=== PATIENT | male | born 1970 | race Caucasian/White ===

== ENCOUNTER 2016-12-27 18:55 | Emergency (ER) | payer MEDICAID, OTHER ==
[2016-12-27 20:06] LABS: BASO % 0.1 % (0.0-2.0); EOS # 0.2 K/uL (0.0-0.7); EOS % 3.2 % (0.0-4.0); LYMPH % 26.3 % (20.0-40.0); MEAN CORPUSCULAR HEMOGLOBIN 28.4 pg (27.0-31.0); MEAN CORPUSCULAR HGB CONC 33.5 g/dL (33.0-37.0); MEAN PLATELET VOLUME 7.2 fL (7.2-11.7); MONO # 0.9 K/uL (0.0-0.8); MONO % 11.9 % (0.0-10.0); RED CELL DISTRIBUTION WIDTH 13.7 % (11.5-14.5); WHITE BLOOD COUNT 7.7 K/uL (4.8-10.8)
--- NOTE | 2016-12-27 20:06 | C.PDOC ---
History Of Present Illness Patient is a 46 year old male who presents to the ER with a complaint of LUQ pain and bilateral flank pain for the past 3 days. Patient describes the pain as sharp and worsens with cough or movement. Patient notes he has been coughing for 7 months with clear/white sputum. He had an x-ray done 2 months ago that showed PNA, however, he was told it was just a cold. Patient states the cough still persists and states it feels different from his asthma. Patient has not tried using reflux medication and states it worsens when laying flat or with exertion. Denies vomiting, chest pain, leg swelling or urinary symptoms. Time Seen by Provider: 12/27/16 19:37 Chief Complaint (Nursing): Abdominal Pain History Per: Patient History/Exam Limitations: no limitations Onset/Duration Of Symptoms: Days (3) Current Symptoms Are (Timing): Still Present Context: Other (Coughing x7 months) Location Of Pain/Discomfort: LUQ, Other (Bilateral flank) Quality Of Discomfort: Sharp Associated Symptoms: denies: Vomiting, Chest Pain, Urinary Symptoms, Other (Leg swelling) Exacerbating Factors: Movement, Cough, Other (Laying down) Alleviating Factors: None Recent travel outside of the [place]: No Past Medical History Reviewed: Historical Data, Nursing Documentation, Vital Signs Vital Signs: Last Vital Signs Temp 99 F 12/27/16 19:02 Pulse 100 H 12/27/16 19:02 Resp 20 12/27/16 19:02 BP 145/94 H 12/27/16 19:02 Pulse Ox 95 12/27/16 20:18 - Medical History PMH: Asthma, Diabetes, HTN, Hypercholesterolemia Surgical History: Appendectomy - [facility] Procedures TETANUS TOXOID ADMINIST (01/21/14) Family History: States: Unknown Family Hx - Social History Hx Tobacco Use: No Hx Alcohol Use: No Hx Substance Use: No - Immunization History Hx Tetanus Toxoid Vaccination: Yes Hx Influenza Vaccination: Yes Hx Pneumococcal Vaccination: No Review Of Systems Cardiovascular: Negative for: Chest Pain Gastrointestinal: Positive for: Abdominal Pain (LUQ). Negative for: Vomiting Genitourinary: Negative for: Dysuria, Frequency, Incontinence, Hematuria Musculoskeletal: Positive for: Other (Bilateral flank pain. No leg swelling.) Physical Exam - Physical Exam Additional Physical Exam Comments: Constitutional: No acute distress. Head: Normocephalic. Atraumatic. Eyes: PERRL. ENT: Moist mucous membranes. Neck: No JVD. Cardiovascular: Regular rate. Radial pulse 2+ bilaterally. Chest: No tenderness. Respiratory: No crackles. GI: LUQ tenderness w/ guarding. Back: Bilateral lower back tenderness. Musculoskeletal: No tenderness or swelling of extremities. Skin: No rash. Neurologic: Alert, no focal deficit. ED Course And Treatment - Laboratory Results Result Diagrams: 12/27/16 20:02 12/27/16 20:02 O2 Sat by Pulse Oximetry: 95 Medical Decision Making Medical Decision Making: Impression: 46 year old male with LUQ pain and bilateral flank pain. Plan: * CT abd/pel w/ IV contrast * Blood work * CXR ABDOMEN: Liver: Fatty infiltration. Gallbladder and bile ducts: No calcified stones. No ductal dilation. Pancreas: No ductal dilation. No mass. Spleen: No splenomegaly. Adrenals: No mass. Kidneys and ureters: Too small to characterize lesion within RIGHT kidney. No hydronephrosis. Stomach and bowel: Apparent mild mural thickening of few jejunal loops. No associated inflammatory stranding. No obstruction. Appendix: No findings to suggest acute appendicitis. PELVIS: Bladder: Unremarkable. Reproductive: Unremarkable as visualized. ABDOMEN and PELVIS: Intraperitoneal space: No significant fluid collection. No free air. Bones/joints: Mild degenerative changes of spine. No acute fracture. Soft tissues: Tiny inguinal hernias containing fat. Vasculature: Unremarkable. No aneurysm. Lymph nodes: Few subcentimeter short axis mesenteric lymph nodes, nonspecific. IMPRESSION: 1. Possible mild enteritis. Clinical correlation is needed. 2. Incidental/non-acute findings are described above. Labs unremarkable. Will discharge home, f/u PMD, return to ER for worsening dyspnea, fever, vomiting, or any other problem. Disposition - Disposition Disposition: HOME/ ROUTINE Disposition Time: 21:55 Condition: STABLE Prescriptions: levoFLOXacin [Levaquin] 1 tab PO DAILY #10 tab Metronidazole [Flagyl] 500 mg PO Q8 #30 tab Instructions: Enteritis (ED) - Clinical Impression Clinical Impression: Enteritis - Scribe Statement The provider has reviewed the documentation as recorded by the Jorgeibnatalie Kelley All medical record entries made by the Jorgeibnatalie were at my direction and personally dictated by me. I have reviewed the chart and agree that the record accurately reflects my personal performance of the history, physical exam, medical decision making, and the department course for this patient. I have also personally directed, reviewed, and agree with the discharge instructions and disposition.
[2016-12-27 20:07] LABS: MEAN CELL VOLUME 84.6 fL (80.0-94.0)
[2016-12-27 20:16] LABS: CHLORIDE 100 mmol/L (98-107); SODIUM 134 mmol/L (132-148)
[2016-12-27 20:17] LABS: POTASSIUM 4.3 mmol/L (3.6-5.2)
[2016-12-27 20:19] LABS: ALB/GLOB RATIO 1.3 (1.0-2.1); ALKALINE PHOSPHATASE 65 U/L (38-126); ALT/SGPT 79 U/L (21-72); AST/SGOT 44 U/L (17-59); BILIRUBIN,TOTAL 0.6 mg/dL (0.2-1.3); BLOOD UREA NITROGEN 17 mg/dL (9-20); CALCIUM 8.5 mg/dl (8.6-10.4); CARBON DIOXIDE 22 mmol/L (22-30); GFR AFRICAN-AMERICAN > 60; GLUCOSE,RANDOM 258 mg/dL (75-110); TOTAL PROTEIN 6.9 g/dL (6.3-8.3)
[2016-12-27] MEDS ORDERED: Iodixanol 320 MG/ML 100 ML BOTTLE IV ONE (20:38)
--- NOTE | 2016-12-27 21:53 | CT ---
EXAM: CT Abdomen and Pelvis With Intravenous Contrast CLINICAL HISTORY: 46 years old, male; Pain; Abdominal pain; Generalized; Additional info: Abdominal pain, flank tenderness TECHNIQUE: Axial computed tomography images of the abdomen and pelvis with intravenous contrast. This CT exam was performed using one or more of the following dose reduction techniques: automated exposure control, adjustment of the mA and/or kV according to patient size, and/or use of iterative reconstruction technique. Coronal and sagittal reformatted images were created and reviewed. CONTRAST: 100 mL of visipaque administered intravenously. COMPARISON: No relevant prior studies available. FINDINGS: Lower thorax: No acute findings. ABDOMEN: Liver: Fatty infiltration. Gallbladder and bile ducts: No calcified stones. No ductal dilation. Pancreas: No ductal dilation. No mass. Spleen: No splenomegaly. Adrenals: No mass. Kidneys and ureters: Too small to characterize lesion within RIGHT kidney. No hydronephrosis. Stomach and bowel: Apparent mild mural thickening of few jejunal loops. No associated inflammatory stranding. No obstruction. Appendix: No findings to suggest acute appendicitis. PELVIS: Bladder: Unremarkable. Reproductive: Unremarkable as visualized. ABDOMEN and PELVIS: Intraperitoneal space: No significant fluid collection. No free air. Bones/joints: Mild degenerative changes of spine. No acute fracture. Soft tissues: Tiny inguinal hernias containing fat. Vasculature: Unremarkable. No aneurysm. Lymph nodes: Few subcentimeter short axis mesenteric lymph nodes, nonspecific. IMPRESSION: 1. Possible mild enteritis. Clinical correlation is needed. 2. Incidental/non-acute findings are described above.
[2016-12-27 22:44] VITALS: BP 124/74; PULSE 74; RESP 18; TEMP 98.2; O2SAT 98
--- NOTE | 2016-12-28 08:21 | RAD ---
HISTORY: cough COMPARISON: 07/11/2014 TECHNIQUE: Chest PA and lateral FINDINGS: LUNGS: No active pulmonary disease. PLEURA: No significant pleural effusion identified. No pneumothorax apparent. CARDIOVASCULAR: Normal. OSSEOUS STRUCTURES: No significant abnormalities. VISUALIZED UPPER ABDOMEN: Normal. OTHER FINDINGS: None. IMPRESSION: No active disease.
== END 2016-12-27 22:44 | disposition home or self-care (01) ==
LOC: C.ER 18:55
DX: K52.9 Noninfective gastroenteritis and colitis, unspecified (principal); I10 Essential (primary) hypertension
CPT/HCPCS: 71020; 74177; 80053; 82550; 82553; 83690; 83880; 84484; 85025; 99285; Q9967

== ENCOUNTER 2017-06-29 10:27 | Observation (INO) | payer SELFPAY ==
[2017-06-29 10:44] VITALS: BMI 36.3
[2017-06-29] MEDS ORDERED: Nitroglycerin 2% Ointment Foilpak UD TOP STA (11:24)
[2017-06-29] MEDS ORDERED: Aspirin 325 mg EC Tablets PO STA (11:24)
--- NOTE | 2017-06-29 11:24 | C.PDOC ---
History Of Present Illness 46 year old male with a PMHx of HTN and Diabetes presents to the ED with complaints of chest pain. Patient reports left sided chest pain and left arm pain that radiates down to the fingers beginning earlier today while driving. Patient has had 3 episodes of chest pain that last a few seconds since the onset with pain to left side of neck. Patient states he has had a sore throat, cough, and abdominal pain for one week. Patient notes similar symptoms 5 years ago and had a negative Stress Test performed. Patient denies fever, chills, weakness, numbness, shortness of breath, or other complaints at this time. Time Seen by Provider: 06/29/17 10:53 Chief Complaint (Nursing): Chest Pain History Per: Patient History/Exam Limitations: no limitations Onset/Duration Of Symptoms: Hrs, Intermittent Episodes Current Symptoms Are (Timing): Still Present Quality: "Pain" Associated Symptoms: denies: Nausea, Dyspnea, Diaphoresis, Syncope Exacerbating Factors: None Alleviating Factors: None Recent travel outside of the [place]: No Additional History Per: Family () Past Medical History Reviewed: Historical Data, Nursing Documentation, Vital Signs Vital Signs: Last Vital Signs Temp 98.4 F 06/29/17 10:38 Pulse 90 06/29/17 10:38 Resp 20 06/29/17 10:38 BP 150/88 06/29/17 10:38 Pulse Ox 96 06/29/17 13:06 - Medical History PMH: Asthma, Diabetes, HTN, Hypercholesterolemia Surgical History: Appendectomy - [facility] Procedures TETANUS TOXOID ADMINIST (01/21/14) Family History: States: Unknown Family Hx - Social History Hx Tobacco Use: No Hx Alcohol Use: No Hx Substance Use: No - Immunization History Hx Tetanus Toxoid Vaccination: Yes Hx Influenza Vaccination: Yes Hx Pneumococcal Vaccination: No Review Of Systems Constitutional: Negative for: Fever, Chills, Sweats Cardiovascular: Positive for: Chest Pain. Negative for: Palpitations Respiratory: Negative for: Cough, Shortness of Breath Gastrointestinal: Positive for: Abdominal Pain (lower abdominal pain). Negative for: Nausea, Vomiting Musculoskeletal: Positive for: Neck Pain (left sided ), Arm Pain (left arm pain ) Neurological: Negative for: Numbness Physical Exam - Physical Exam Appears: Non-toxic, No Acute Distress Skin: Warm, Dry, No Rash Head: Atraumatic, Normacephalic, No Tenderness Eye(s): bilateral: Normal Inspection Oral Mucosa: Moist Chest: Symmetrical, No Deformity, No Tenderness (non-reproducible, with palpation, chest pain left anterior chest wall ) Cardiovascular: Rhythm Regular, No Murmur Respiratory: No Rales, No Rhonchi, No Wheezing, Other (clear to auscultation bilaterally) Extremity: Normal ROM, No Pedal Edema, Capillary Refill (< 2 seconds), No Swelling, Other (left shoulder reproducible pain with internal rotation and adduction) Neurological/Psych: Oriented x3 ED Course And Treatment - Laboratory Results Result Diagrams: 06/29/17 12:11 06/29/17 12:11 ECG: Interpreted By Me ECG Rhythm: Sinus Rhythm ECG Interpretation: Normal Rate From EC O2 Sat by Pulse Oximetry: 96 (RA) Pulse Ox Interpretation: Normal - Radiology CXR: Interpreted by Me, Viewed By Me CXR Interpretation: Yes: No Acute Disease Progress Note: EKG, CXR, labd, and blood work were ordered. Patient was given Aspirin, Nitroglycerin 2%, and Toradol. Reevaluation Time: 13:06 Reassessment Condition: Improved - Physician Consult Information Time Consulting Physician Contacted: 13:06 Physician Contacted: Guillermina Silva Disposition Counseled Patient/Family Regarding: Studies Performed, Diagnosis - Disposition Disposition: HOSPITALIZED Disposition Time: 13:06 Condition: STABLE - POA Present On Arrival: Poor Glycemic Control - Clinical Impression Clinical Impression: Chest pain - Scribe Statement The provider has reviewed the documentation as recorded by the Scribe Liliana Dimas All medical record entries made by the Scribe were at my direction and personally dictated by me. I have reviewed the chart and agree that the record accurately reflects my personal performance of the history, physical exam, medical decision making, and the department course for this patient. I have also personally directed, reviewed, and agree with the discharge instructions and disposition. Decision To Admit - Pt Status Changed To: Hospital Disposition Of: Observation - . Bed Request Type: Telemetry Admitting Physician: Guillermina Silva Patient Diagnosis: Chest pain
--- NOTE | 2017-06-29 11:47 | RAD ---
HISTORY: chest pain COMPARISON: Chest x-ray performed 12/27/16 TECHNIQUE: Chest PA and lateral FINDINGS: Examination limited by habitus. LUNGS: No focal consolidation. Please note that chest x-ray has limited sensitivity for the detection of pulmonary masses. PLEURA: No significant pleural effusion identified. No definite pneumothorax . CARDIOVASCULAR: Heart size appears top normal. OSSEOUS STRUCTURES: Degenerative changes of the spine. VISUALIZED UPPER ABDOMEN: Unremarkable. OTHER FINDINGS: None. IMPRESSION: No focal consolidation, significant pleural effusion, or definite pneumothorax identified.
[2017-06-29] MEDS ORDERED: Nitroglycerin 2% Ointment Foilpak UD TOP ONE (11:48)
[2017-06-29 12:14] LABS: BASO # 0.1 K/uL (0.0-0.2); BASO % 0.6 % (0.0-2.0); EOS # 0.3 K/uL (0.0-0.7); EOS % 2.8 % (0.0-4.0); HEMATOCRIT 42.6 % (35.0-51.0); MEAN CELL VOLUME 85.3 fL (80.0-94.0); MEAN CORPUSCULAR HEMOGLOBIN 28.3 pg (27.0-31.0); MEAN CORPUSCULAR HGB CONC 33.2 g/dL (33.0-37.0); MEAN PLATELET VOLUME 7.5 fL (7.2-11.7); MONO # 0.7 K/uL (0.0-0.8); MONO % 7.3 % (0.0-10.0); RED CELL DISTRIBUTION WIDTH 13.3 % (11.5-14.5); WHITE BLOOD COUNT 9.2 K/uL (4.8-10.8)
[2017-06-29 12:27] LABS: ALB/GLOB RATIO 1.5 (1.0-2.1); ALKALINE PHOSPHATASE 50 U/L (38-126); ALT/SGPT 62 U/L (21-72); AST/SGOT 28 U/L (17-59); BILIRUBIN,TOTAL 0.5 mg/dL (0.2-1.3); BLOOD UREA NITROGEN 11 mg/dL (9-20); CALCIUM 8.5 mg/dl (8.6-10.4); CARBON DIOXIDE 27 mmol/L (22-30); CHLORIDE 102 mmol/L (98-107); GFR AFRICAN-AMERICAN > 60; GLUCOSE,RANDOM 265 mg/dL (75-110); POTASSIUM 4.3 mmol/L (3.6-5.2); SODIUM 136 mmol/L (132-148); TOTAL PROTEIN 6.4 g/dL (6.3-8.3)
--- NOTE | 2017-06-29 15:33 | CP.PCM.HP ---
History of Present Illness - History of Present Illness History of Present Illness: Pt came to ER co chest pain. Pt states he was doing well, went to the bank and while there felt some chest discomfort. PT states it felt as somebody " punching him on the chest". Pt states the discomfort occurred two more times while in the ER but always lasting seconds. PT is comfortable now. had a stress test a couple of years ago and was told it was ok PMh Uncontrolled diabetes Elevated LFT's HTN Asthma Radiculopathy cervical, lumbosacral Hyperlipidemia Family Hx: Mother: Dm, HTN Surgical Hx: none Social Hx: Neg. smoke Allergies: NKDA Current meds: Metformin 1,000ml 1 tab BID Toujeo Solostar 40 units QHS, 35 units every morning Aspirin 81mg 1 tab QD Carvedilol 3.125mg 1 tab po BID Glimepiride 4mg 1 tab po BID Flovent HFA 1 puff BID Present on Admission - Present on Admission Any Indicators Present on Admission: No Review of Systems - Constitutional Constitutional: absent: Chills, Fatigue, Malaise - Cardiovascular Cardiovascular: Chest Pain. absent: Edema, Irregular Heart Rhythm Past Patient History - Infectious Disease Hx of Infectious Diseases: None - Tetanus Immunizations Tetanus Immunization: Unknown - Past Medical History & Family History Past Medical History?: Yes - Past Social History Smoking Status: Never Smoked - CARDIAC Hx Hypercholesterolemia: Yes Hx Hypertension: Yes - PULMONARY Hx Asthma: Yes - ENDOCRINE/METABOLIC Hx Diabetes Mellitus Type 2: Yes - MUSCULOSKELETAL/RHEUMATOLOGICAL Hx Falls: No - PSYCHIATRIC Hx Substance Use: No - SURGICAL HISTORY Hx Appendectomy: Yes - ANESTHESIA Hx Anesthesia: Yes Hx Anesthesia Reactions: No Meds Allergies/Adverse Reactions: Allergies Allergy/AdvReac Type Severity Reaction Status Date / Time No Known Allergies Allergy Verified 06/29/17 10:37 Physical Exam - Constitutional Appears: Non-toxic - Eye Exam Eye Exam: EOMI, Normal appearance - ENT Exam ENT Exam: Mucous Membranes Moist - Neck Exam Neck exam: Positive for: Normal Inspection - Respiratory Exam Respiratory Exam: NORMAL BREATHING PATTERN - Cardiovascular Exam Cardiovascular Exam: REGULAR RHYTHM, RRR, +S1, +S2. absent: JVD - GI/Abdominal Exam GI & Abdominal Exam: Normal Bowel Sounds, Soft - Neurological Exam Neurological exam: Alert (no pedal edeam), Oriented x3 Results - Vital Signs Recent Vital Signs: Last Vital Signs Temp 98.4 F 06/29/17 10:38 Pulse 90 06/29/17 10:38 Resp 20 06/29/17 10:38 BP 150/88 06/29/17 10:38 Pulse Ox 96 06/29/17 13:47 - Labs Result Diagrams: 06/29/17 12:11 06/29/17 12:11 Labs: Laboratory Results - last 24 hr 06/29/17 06/29/17 12:11 12:11 WBC 9.2 RBC 4.99 Hgb 14.1 Hct 42.6 MCV 85.3 MCH 28.3 MCHC 33.2 RDW 13.3 Plt Count 360 MPV 7.5 Neut % (Auto) 67.3 Lymph % (Auto) 22.0 [place] % (Auto) 7.3 Eos % (Auto) 2.8 Baso % (Auto) 0.6 Neut # 6.2 Lymph # 2.0 [place] # 0.7 Eos # 0.3 Baso # 0.1 Sodium 136 Potassium 4.3 Chloride 102 Carbon Dioxide 27 Anion Gap 12 BUN 11 Creatinine 0.6 L Est GFR ( Amer) > 60 Est GFR (Non-Af Amer) > 60 Random Glucose 265 H Calcium 8.5 L Total Bilirubin 0.5 AST 28 ALT 62 Alkaline Phosphatase 50 Troponin I < 0.0120 Total Protein 6.4 Albumin 3.8 Globulin 2.5 Albumin/Globulin Ratio 1.5 Assessment & Plan - Assessment and Plan (Free Text) Assessment: 46 year old with atypical chest discomfort pt is diabetic in poor controll will admit under observation given his riks factors asa bblocker joe ekg cardio eval cont diabetic mes
[2017-06-29 21:56] LABS: CHOLESTEROL 180 mg/dL (0-199)
[2017-06-29 22:04] VITALS: RESP 20
[2017-06-30] MEDS ORDERED: (Lantus) Insulin Glargine, Recombinant SC SCH (10:00)
[2017-06-30] MEDS ORDERED: Enoxaparin 40 mg Syringe SC SCH (10:00)
[2017-06-30 10:11] VITALS: BP 127/74; TEMP 97.9; O2SAT 95
--- NOTE | 2017-06-30 13:31 | CP.PCM.CON ---
History of Present Illness - History of Present Illness History of Present Illness: 46 year old man with diabetes and recent URI. Pt left the bank, and in the car had two separate episodes of brief sharp chest pain, left sided, lasting seconds. Symptoms recurred in the ER. He also had separate left arm pain, lasting a few minutes, down to his fingers. later she developed a separate pain from the shoulder to the neck. TNI and ecg are normal. A nuclear stress test performed two years ago was normal at 7.0 METS. Review of Systems - Review of Systems All systems: reviewed and no additional remarkable complaints except (as abov.e) Past Patient History - Infectious Disease Hx of Infectious Diseases: None - Tetanus Immunizations Tetanus Immunization: Unknown - Past Medical History & Family History Past Medical History?: Yes - Past Social History Smoking Status: Never Smoked - CARDIAC Hx Cardiac Disorders: Yes Hx Hypercholesterolemia: Yes Hx Hypertension: Yes - PULMONARY Hx Respiratory Disorders: Yes Hx Asthma: Yes - ENDOCRINE/METABOLIC Hx Endocrine Disorders: Yes Hx Diabetes Mellitus Type 2: Yes - MUSCULOSKELETAL/RHEUMATOLOGICAL Hx Musculoskeletal Disorders: No Hx Falls: No - PSYCHIATRIC Hx Substance Use: No - SURGICAL HISTORY Hx Surgeries: Yes Hx Appendectomy: Yes - ANESTHESIA Hx Anesthesia: Yes Hx Anesthesia Reactions: No Meds Allergies/Adverse Reactions: Allergies Allergy/AdvReac Type Severity Reaction Status Date / Time No Known Allergies Allergy Verified 06/29/17 10:37 - Medications Medications: Current Medications Aspirin (Aspirin Chewable) 81 mg PO DAILY [facility] Last Admin: 06/30/17 10:12 Dose: 81 mg Carvedilol (Coreg) 6.25 mg PO BID [facility] Last Admin: 06/30/17 10:12 Dose: 6.25 mg Enoxaparin Sodium (Lovenox) 40 mg SC DAILY [facility] Last Admin: 06/30/17 10:12 Dose: 40 mg Insulin Glargine (Lantus) 40 unit SC DAILY [facility] Last Admin: 06/30/17 10:36 Dose: 40 units Metformin HCl (Glucophage) 1,000 mg PO BID [facility] Last Admin: 06/30/17 10:12 Dose: 1,000 mg Rosuvastatin Calcium (Crestor) 20 mg PO HS [facility] Last Admin: 06/29/17 22:37 Dose: 20 mg Physical Exam - Constitutional Appears: Well - Head Exam Head Exam: ATRAUMATIC - Eye Exam Eye Exam: EOMI - ENT Exam ENT Exam: Mucous Membranes Moist - Respiratory Exam Respiratory Exam: Clear to Auscultation Bilateral - Cardiovascular Exam Cardiovascular Exam: REGULAR RHYTHM - GI/Abdominal Exam GI & Abdominal Exam: Normal Bowel Sounds - Rectal Exam Rectal Exam: NORMAL INSPECTION - Exam External exam: NORMAL EXTERNAL EXAM - Extremities Exam Extremities exam: Positive for: normal inspection - Back Exam Back exam: NORMAL INSPECTION - Neurological Exam Neurological exam: Alert, CN II-XII Intact, Oriented x3 - Psychiatric Exam Psychiatric exam: Normal Affect, Normal Mood - Skin Skin Exam: Dry Results - Vital Signs Recent Vital Signs: Last Vital Signs Temp 97.9 F 06/30/17 10:10 Pulse 89 06/30/17 10:10 Resp 20 06/30/17 10:10 BP 127/74 06/30/17 10:10 Pulse Ox 95 06/30/17 10:10 - Labs Result Diagrams: 06/29/17 12:11 06/29/17 12:11 Labs: Laboratory Results - last 24 hr 06/29/17 06/29/17 06/29/17 21:34 21:40 21:46 POC Glucose (mg/dL) 234 H Total Creatine Kinase 113 CK-MB (Mass) 1.14 Troponin I < 0.0120 Triglycerides 229 H Cholesterol 180 LDL Cholesterol Direct 115 HDL Cholesterol 33 06/30/17 06/30/17 06:21 11:15 POC Glucose (mg/dL) 197 H 239 H Total Creatine Kinase CK-MB (Mass) Troponin I Triglycerides Cholesterol LDL Cholesterol Direct HDL Cholesterol - EKG Data EKG Interpreted by: Myself EKG shows normal: Sinus rhythm Rate: Normal (normal ecg) Assessment & Plan - Assessment and Plan (Free Text) Assessment: 1. Pt has atypical components of his story: pt had been coughing and chest pain very brief. However, he does report left arm pain that lasted for a while. TNI and ecg are normal. Will perform stress test in the morning to assess the patient and risk stratification. 2. Add velvet inhibitor for HTN and dm. Continue beta amanda, asa statin.
--- NOTE | 2017-06-30 14:48 | CP.PCM.PN ---
Subjective - Date & Time of Evaluation Date of Evaluation: 06/30/17 Time of Evaluation: 14:48 - Subjective Subjective: PATIENT WAS ADMITTED FOR CHEST PAIN; AAOX3 DENIES ANY CHEST PAIN SOB NAUSEA OR VOMITING NO SIGN OF DISTRESS NOTED Objective - Vital Signs/Intake and Output Vital Signs (last 24 hours): Temp Pulse Resp BP Pulse Ox 97.9 F 89 20 127/74 95 06/30/17 10:10 06/30/17 10:10 06/30/17 10:10 06/30/17 10:10 06/30/17 10:10 Intake and Output: 06/30/17 06/30/17 06:59 18:59 Intake Total 480 Balance 480 - Medications Medications: Current Medications Aspirin (Aspirin Chewable) 81 mg PO DAILY [facility] Last Admin: 06/30/17 10:12 Dose: 81 mg Carvedilol (Coreg) 6.25 mg PO BID [facility] Last Admin: 06/30/17 10:12 Dose: 6.25 mg Enoxaparin Sodium (Lovenox) 40 mg SC DAILY [facility] Last Admin: 06/30/17 10:12 Dose: 40 mg Insulin Glargine (Lantus) 40 unit SC DAILY [facility] Last Admin: 06/30/17 10:36 Dose: 40 units Metformin HCl (Glucophage) 1,000 mg PO BID [facility] Last Admin: 06/30/17 10:12 Dose: 1,000 mg Rosuvastatin Calcium (Crestor) 20 mg PO HS [facility] Last Admin: 06/29/17 22:37 Dose: 20 mg - Labs Labs: 06/29/17 12:11 06/29/17 12:11 - Head Exam Head Exam: NORMOCEPHALIC - Eye Exam Pupil Exam: NORMAL ACCOMODATION - Respiratory Exam Respiratory Exam: Clear to Ausculation Bilateral, NORMAL BREATHING PATTERN - Cardiovascular Exam Cardiovascular Exam: +S1, +S2 Assessment and Plan - Assessment and Plan (Free Text) Assessment: A/P PATIENT IS SEEN AND EXAMINED AT THE BEDSIDE; JUST CAME FROM STRESS TEST WHICH IS NEG BY DR ROUSSEAU WHO CLEAR THE PATIENT FOR DC LUNG SOUND CLEAR; DISCUSS WITH DR LOPEZ WHO AGREE AND CLEAR PATIENT TO DC FOLLOW UP WITH DR LOPEZ IN A WEEK AT HER OFFICE ---CALL HER OFFICE FOR APPOINTMENT CONTINUE ALL YOUR HOME MEDICATION PER MED RECS NEW RX GIVEN: CRESTOR 20 MG PO AT HS AMOXICILLIN 500 MG PO THREE TIMES A DAY FOR [address] LOPEZ OR GO TO THE EMERGENCY ROOM IF SYMPTOMS RETURN OR WORSENING DISCUSS WITH PATIENT WHO AGREE AND VERBALIZED UNDERSTANDING
--- NOTE | 2017-06-30 15:20 | CP.PCM.DIS ---
Provider - Provider Date of Admission: 06/29/17 13:06 Pt was admitted for atypical chest pain place in telemetry ruled out ekg normal was evalutated by cardio stress test was ck Attending physician: Guillermina Silva MD Time Spent in preparation of Discharge (in minutes): 30 Hospital Course - Lab Results Lab Results: Most Recent Lab Values WBC 9.2 K/uL (4.8-10.8) 06/29/17 12:11 RBC 4.99 Mil/uL (4.40-5.90) 06/29/17 12:11 Hgb 14.1 g/dL (12.0-18.0) 06/29/17 12:11 Hct 42.6 % (35.0-51.0) 06/29/17 12:11 MCV 85.3 fL (80.0-94.0) 06/29/17 12:11 MCH 28.3 pg (27.0-31.0) 06/29/17 12:11 MCHC 33.2 g/dL (33.0-37.0) 06/29/17 12:11 RDW 13.3 % (11.5-14.5) 06/29/17 12:11 Plt Count 360 K/uL (130-400) 06/29/17 12:11 MPV 7.5 fL (7.2-11.7) 06/29/17 12:11 Neut % (Auto) 67.3 % (50.0-75.0) 06/29/17 12:11 Lymph % (Auto) 22.0 % (20.0-40.0) 06/29/17 12:11 Montgomery % (Auto) 7.3 % (0.0-10.0) 06/29/17 12:11 Eos % (Auto) 2.8 % (0.0-4.0) 06/29/17 12:11 Baso % (Auto) 0.6 % (0.0-2.0) 06/29/17 12:11 Neut # 6.2 K/uL (1.8-7.0) 06/29/17 12:11 Lymph # 2.0 K/uL (1.0-4.3) 06/29/17 12:11 Montgomery # 0.7 K/uL (0.0-0.8) 06/29/17 12:11 Eos # 0.3 K/uL (0.0-0.7) 06/29/17 12:11 Baso # 0.1 K/uL (0.0-0.2) 06/29/17 12:11 Sodium 136 mmol/L (132-148) 06/29/17 12:11 Potassium 4.3 mmol/L (3.6-5.2) 06/29/17 12:11 Chloride 102 mmol/L (98-107) 06/29/17 12:11 Carbon Dioxide 27 mmol/L (22-30) 06/29/17 12:11 Anion Gap 12 (10-20) 06/29/17 12:11 BUN 11 mg/dL (9-20) 06/29/17 12:11 Creatinine 0.6 mg/dL (0.8-1.5) L 06/29/17 12:11 Est GFR ( Amer) > 60 06/29/17 12:11 Est GFR (Non-Af Amer) > 60 06/29/17 12:11 POC Glucose (mg/dL) 239 mg/dL (65-110) H 06/30/17 11:15 Random Glucose 265 mg/dL (75-110) H 06/29/17 12:11 Calcium 8.5 mg/dl (8.6-10.4) L 06/29/17 12:11 Total Bilirubin 0.5 mg/dL (0.2-1.3) 06/29/17 12:11 AST 28 U/L (17-59) 06/29/17 12:11 ALT 62 U/L (21-72) 06/29/17 12:11 Alkaline Phosphatase 50 U/L (38-126) 06/29/17 12:11 Total Creatine Kinase 113 U/L (55-170) 06/29/17 21:34 CK-MB (Mass) 1.14 ng/mL (0.0-3.38) 06/29/17 21:34 Troponin I < 0.0120 ng/mL (0.00-0.120) 06/29/17 21:34 Total Protein 6.4 g/dL (6.3-8.3) 06/29/17 12:11 Albumin 3.8 g/dL (3.5-5.0) 06/29/17 12:11 Globulin 2.5 gm/dL (2.2-3.9) 06/29/17 12:11 Albumin/Globulin Ratio 1.5 (1.0-2.1) 06/29/17 12:11 Triglycerides 229 mg/dL (0-149) H 06/29/17 21:46 Cholesterol 180 mg/dL (0-199) 06/29/17 21:46 LDL Cholesterol Direct 115 mg/dL (0-129) 06/29/17 21:46 HDL Cholesterol 33 mg/dL (30-70) 06/29/17 21:46 - Hospital Course Hospital Course: Pt was admitted , ruled out stress test was negativ seen by Dr. Ramirez Discharge Exam - Head Exam Head Exam: ATRAUMATIC - Eye Exam Eye Exam: EOMI, Normal appearance - Respiratory Exam Respiratory Exam: Clear to PA & Lateral, NORMAL BREATHING PATTERN - Cardiovascular Exam Cardiovascular Exam: REGULAR RHYTHM, RRR, +S1, +S2 - GI/Abdominal Exam GI & Abdominal Exam: Normal Bowel Sounds Discharge Plan - Discharge Medications Prescriptions: Amoxicillin 500 mg PO TID #15 tablet Rosuvastatin Calcium [Crestor] 20 mg PO HS #30 tab - Follow Up Plan Instructions: Amoxicillin (By mouth), Rosuvastatin (By mouth), Chest Pain (DC) , Heart Healthy Diet (DC) Additional Instructions: FOLLOW UP WITH DR SILVA IN A WEEK AT HER OFFICE ---CALL HER OFFICE FOR APPOINTMENT CONTINUE ALL YOUR HOME MEDICATION PER MED RECS NEW RX GIVEN: CRESTOR 20 MG PO AT HS AMOXICILLIN 500 MG PO THREE TIMES A DAY FOR [address] SILVA OR GO TO THE EMERGENCY ROOM IF SYMPTOMS RETURN OR WORSENING Referrals: Guillermina Silva MD [Staff Provider] -
[2017-06-30 16:01] VITALS: PULSE 87
--- NOTE | 2017-06-30 22:22 | CARD ---
APPROVED REPORT EKG Measurement Heart [id number] <Conclusion> Normal sinus rhythm Normal ECG
[2017-07-01] MEDS ORDERED: Influenza Vaccine 60 mcg/0.5 mL SYR (4YR UP) IM ONE (10:00)
== END 2017-06-30 15:39 | disposition home or self-care (01) ==
LOC: C.ER 10:27 → C.9E 13:06 → C.6T 20:53
PROVIDERS: ADMIT Internal Medicine; ATTEND Internal Medicine
DX: R07.89 Other chest pain (principal); E78.5 Hyperlipidemia, unspecified; E11.9 Type 2 diabetes mellitus without complications; I10 Essential (primary) hypertension; J45.909 Unspecified asthma, uncomplicated; Z68.36 Body mass index [BMI] 36.0-36.9, adult
CPT/HCPCS: 71020; 80053; 80061; 82948; 84484; 85025; 93005; 96374; 99285; G0378; J1650; J1885

== ENCOUNTER 2018-03-23 21:52 | Emergency (ER) | payer BC ==
[2018-03-23 21:52] VITALS: BMI 36.3
[2018-03-23 22:33] VITALS: BP 138/85; PULSE 85; RESP 18; TEMP 99.3; O2SAT 96
--- NOTE | 2018-03-24 00:10 | C.PDOC ---
History Of Present Illness 47 y/o male presents to the ED complaining of right-sided neck pain and stiffness since waking up today. Patient states pain is radiating to his head and right ear. Denies any trauma. Otherwise no dizziness, weakness, numbness, fever, vomiting, or URI symptoms. States he took Motrin this morning with minimal relief. He now feels that pain has worsened. Time Seen by Provider: 03/23/18 22:38 Chief Complaint (Nursing): Medical Clearance History Per: Patient History/Exam Limitations: no limitations Onset/Duration Of Symptoms: Hrs Current Symptoms Are (Timing): Still Present Past Medical History Reviewed: Historical Data, Nursing Documentation, Vital Signs Vital Signs: Last Vital Signs Temp 99.3 F 03/23/18 22:27 Pulse 85 03/23/18 22:27 Resp 18 03/23/18 22:27 BP 138/85 03/23/18 22:27 Pulse Ox 96 03/24/18 01:38 - Medical History PMH: Asthma, Diabetes, HTN, Hypercholesterolemia Surgical History: Appendectomy - [facility] Procedures TETANUS TOXOID ADMINIST (01/21/14) Family History: States: Unknown Family Hx - Social History Hx Tobacco Use: No Hx Alcohol Use: No (social drinker only) Hx Substance Use: No - Immunization History Hx Tetanus Toxoid Vaccination: Yes Hx Influenza Vaccination: No Hx Pneumococcal Vaccination: No Review Of Systems Constitutional: Negative for: Fever, Chills ENT: Positive for: Ear Pain (right). Negative for: Nose Congestion, Throat Pain Respiratory: Negative for: Cough, Shortness of Breath Musculoskeletal: Positive for: Neck Pain (and stiffness) Neurological: Positive for: Headache. Negative for: Weakness, Numbness, Dizziness Physical Exam - Physical Exam Appears: Non-toxic, No Acute Distress Skin: Normal Color, Warm, Dry Head: Atraumatic, Normacephalic, Other (No facial swelling) Eye(s): bilateral: Normal Inspection, PERRL, EOMI Ear(s): Bilateral: Normal Nose: Normal Oral Mucosa: Moist Throat: Normal, No Erythema, No Exudate, No Drooling Neck: Decreased ROM (Limited head rotation secondary to pain), No Midline Cervical Tenderness, Paracervical Tenderness (right-sided), No Other (swelling) Lymphatic: No Adenopathy Chest: Symmetrical Cardiovascular: Rhythm Regular, No Murmur Respiratory: Normal Breath Sounds, No Accessory Muscle Use, Other (No respiratory distress) Extremity: Bilateral: Atraumatic, Normal ROM Neurological/Psych: Oriented x3, Normal Speech, Normal Motor, Normal Sensation Gait: Steady ED Course And Treatment O2 Sat by Pulse Oximetry: 96 (RA) Pulse Ox Interpretation: Normal Progress Note: Given IM Toradol and PO Valium in the ED. On reevaluation, patient reports improvement in symptoms and remains afebrile, AAOx3. Patient will be discharged home with prescriptions for Valium and Naproxen. Advised to follow up with PMD/the clinic for further evaluation. Reassessment Condition: Improved Disposition Counseled Patient/Family Regarding: Diagnosis, Need For Followup, Rx Given - Disposition Referrals: [facility] [Outside] Disposition: HOME/ ROUTINE Disposition Time: 00:05 Condition: STABLE Additional Instructions: Please follow up with PMD Take medications as directed Return to ER if worse Prescriptions: diaZEpam [Valium] 5 mg PO TID #14 tab Naproxen [Naprosyn] 1 tab PO BID PRN #20 tab PRN Reason: Pain Instructions: Torticollis (DC) Forms: [employer] (Thai) - POA Present On Arrival: None - Clinical Impression Clinical Impression: Torticollis - PA / CASH RECONCILIATION SPECIALIST / Resident Statement MD/DO has reviewed & agrees with the documentation as recorded. - Scribe Statement The provider has reviewed the documentation as recorded by the Scribe (Catherine Stone) All medical record entries made by the Scribe were at my direction and personally dictated by me. I have reviewed the chart and agree that the record accurately reflects my personal performance of the history, physical exam, medical decision making, and the department course for this patient. I have also personally directed, reviewed, and agree with the discharge instructions and disposition.
== END 2018-03-24 00:26 | disposition home or self-care (01) ==
LOC: C.ER 21:52
DX: M43.6 Torticollis (principal); E11.9 Type 2 diabetes mellitus without complications; I10 Essential (primary) hypertension; E78.00 Pure hypercholesterolemia, unspecified
CPT/HCPCS: 96372; 99282; J1885

== ENCOUNTER 2018-07-30 12:18 | Outpatient (CLI) | payer BC | END 2018-07-30 12:19 | disposition home or self-care (01) | LOC: C.RADIC 12:18 ==

== ENCOUNTER 2018-09-29 16:39 | Emergency (ER) | payer BC ==
[2018-09-29 16:40] VITALS: BMI 36.3
[2018-09-29] MEDS ORDERED: Amoxicillin-Clav 875-125 mg Tab PO STA (18:31)
--- NOTE | 2018-09-29 19:07 | C.PDOC ---
History Of Present Illness 47 y/o male,w/PMhx of diabetes, presents to the ER complaining of pain in right lateral calf which has been present for the past 4 days becoming worse today. Patient reports that the pain radiates up the right leg. Patient states that he has redness and swelling to the area now He notes that he has pain with walking.Denies having trauma, weakness, numbness, prolonged immobilization, CP,SOB, fever, chills, recent travel. <Lindy Bateman - Last Filed: 09/29/18 19:20> History Per: Patient History/Exam Limitations: no limitations Onset/Duration Of Symptoms: Days Current Symptoms Are (Timing): Still Present Severity: Moderate <Lindy Bateman - Last Filed: 09/29/18 19:20> <Marian Mancini - Last Filed: 09/29/18 19:54> Time Seen by Provider: 09/29/18 17:36 Chief Complaint (Nursing): Lower Extremity Problem/Injury Past Medical History Reviewed: Historical Data, Nursing Documentation, Vital Signs Vital Signs: Last Vital Signs Temp 98.3 F 09/29/18 17:58 Pulse 104 H 09/29/18 17:58 Resp 20 09/29/18 17:58 BP 147/81 09/29/18 17:58 Pulse Ox 97 09/29/18 17:58 - Medical History PMH: Asthma, Diabetes, HTN, Hypercholesterolemia Surgical History: Appendectomy - [facility] Procedures TETANUS TOXOID ADMINIST (01/21/14) Family History: States: No Known Family Hx - Social History Hx Tobacco Use: No Hx Alcohol Use: No Hx Substance Use: No - Immunization History Hx Tetanus Toxoid Vaccination: Yes Hx Influenza Vaccination: No Hx Pneumococcal Vaccination: No <Lindy Bateman - Last Filed: 09/29/18 19:20> Vital Signs: Last Vital Signs Temp 98.3 F 09/29/18 17:58 Pulse 104 H 09/29/18 17:58 Resp 20 09/29/18 17:58 BP 147/81 09/29/18 17:58 Pulse Ox 97 09/29/18 19:30 - [facility] Procedures TETANUS TOXOID ADMINIST (01/21/14) <Marian Mancini - Last Filed: 09/29/18 19:54> Review Of Systems Except As Marked, All Systems Reviewed And Found Negative. Constitutional: Negative for: Fever, Chills Cardiovascular: Negative for: Chest Pain Respiratory: Negative for: Shortness of Breath Musculoskeletal: Positive for: Other (right leg pain) Neurological: Negative for: Weakness, Numbness <Lindy Bateman - Last Filed: 09/29/18 19:20> Physical Exam - Physical Exam Appears: Non-toxic, No Acute Distress Skin: Warm, Dry, Other (10 x 8 cm area of well circumscribed eythematous area to left lateral proximal calf with induration, no fluctuance,no streaking, skin intact) Head: Atraumatic, Normacephalic Eye(s): bilateral: Normal Inspection Nose: Normal Oral Mucosa: Moist Neck: Supple Chest: Symmetrical Extremity: Normal ROM (full ROM in LLE) Neurological/Psych: Oriented x3, Normal Speech, Normal Sensation <Lindy Bateman - Last Filed: 09/29/18 19:20> ED Course And Treatment O2 Sat by Pulse Oximetry: 97 (RA) Pulse Ox Interpretation: Normal <Lindy Bateman - Last Filed: 09/29/18 19:20> - Laboratory Results Lab Results: D-Dimer, Quantitative 353 ng/mlDDU (0-243) H 09/29/18 19:18 Lab Interpretation: Abnormal (d dimer 353) Progress Note: Patient treated with Lovenox in ED and will return in the morning for venous doppler. <Marian Mancini - Last Filed: 09/29/18 19:54> Medical Decision Making Medical Decision Making: Plan: --Augmentin PO --Motrin PO <Lindy Bateman - Last Filed: 09/29/18 19:20> Disposition Counseled Patient/Family Regarding: Studies Performed, Diagnosis, Need For Followup - Disposition Disposition Time: 19:05 - POA Present On Arrival: Poor Glycemic Control <Lindy Bateman - Last Filed: 09/29/18 19:20> Counseled Patient/Family Regarding: Studies Performed, Diagnosis, Need For Followup, Rx Given <Marian Mancini - Last Filed: 09/29/18 19:54> - Disposition Referrals: Guillermina Silva MD [Staff Provider] - Condition: STABLE Additional Instructions: Return to the ED in the morning for venous doppler to rule out possible deep venous thrombosis. Prescriptions: Amoxicillin/Clavulanate [Augmentin 875 MG-125 MG] 1 tab PO BID #20 tab Ibuprofen [Motrin Tab] 800 mg PO TID PRN #30 tab PRN Reason: Pain, Moderate (4-7) Instructions: Cellulitis (Skin Infection), Adult (DC) Forms: General Discharge Instructions, [facility] (Armenian), Work Excuse - Clinical Impression Clinical Impression: Cellulitis, Swelling of right lower extremity - Scribe Statement The provider has reviewed the documentation as recorded by the Althea Patiño Provider Attestation: All medical record entries made by the Althea were at my direction and personally dictated by me. I have reviewed the chart and agree that the record accurately reflects my personal performance of the history, physical exam, medical decision making, and the department course for this patient. I have also personally directed, reviewed, and agree with the discharge instructions and disposition. <Lindy Bateman - Last Filed: 09/29/18 19:20> Physician Patient Turnover Patient Signed Over To: Marian Mancini Handoff Comments: lab, dispo <Lindy Bateman - Last Filed: 09/29/18 19:20>
[2018-09-29] MEDS ORDERED: Amoxicillin-Clav 875-125 mg Tab PO ONE (19:30)
[2018-09-29] MEDS ORDERED: Enoxaparin 80 mg Syringe SC STA (19:54)
[2018-09-29] MEDS ORDERED: Enoxaparin 80 mg Syringe ONE (20:22)
[2018-09-29 20:48] VITALS: BP 156/77; PULSE 90; RESP 19; TEMP 98.9; O2SAT 100
== END 2018-09-29 20:48 | disposition home or self-care (01) ==
LOC: C.ER 16:39
DX: L03.115 Cellulitis of right lower limb (principal); M79.89 Other specified soft tissue disorders; E11.9 Type 2 diabetes mellitus without complications; I10 Essential (primary) hypertension
CPT/HCPCS: 82948; 85378; 96372; 99284; J1650

== ENCOUNTER 2018-09-30 08:37 | Emergency (ER) | payer BC ==
[2018-09-30 08:44] VITALS: BMI 30.9
[2018-09-30 08:49] VITALS: BP 130/89; PULSE 91; RESP 18; TEMP 97.6; O2SAT 95
--- NOTE | 2018-09-30 09:59 | C.PDOC ---
History Of Present Illness 47 year old male comes to ED requesting venous doppler for his right leg. Patient was here 09/29 and was instructed to come back today for a venous doppler. Patient was seen yesterday and had an elevated D-dimer at the time. Patient is currently being treated for cellulitis with Augmentin. He reports decreased swelling and pain to his right leg. Patient denies chest pain, SOB, numbness, or weakness. Time Seen by Provider: 09/30/18 08:49 Chief Complaint (Nursing): Lower Extremity Problem/Injury History Per: Patient History/Exam Limitations: no limitations Onset/Duration Of Symptoms: Days (1) Current Symptoms Are (Timing): Still Present Past Medical History Reviewed: Historical Data, Nursing Documentation, Vital Signs Vital Signs: Last Vital Signs Temp 97.6 F 09/30/18 08:44 Pulse 91 H 09/30/18 08:44 Resp 18 09/30/18 08:44 BP 130/89 09/30/18 08:44 Pulse Ox 95 09/30/18 08:44 - Medical History PMH: Asthma, Diabetes, HTN, Hypercholesterolemia Surgical History: Appendectomy - [facility] Procedures TETANUS TOXOID ADMINIST (01/21/14) Family History: States: Unknown Family Hx - Social History Hx Tobacco Use: No Hx Alcohol Use: No Hx Substance Use: No - Immunization History Hx Tetanus Toxoid Vaccination: Yes Hx Influenza Vaccination: No Hx Pneumococcal Vaccination: No Review Of Systems Constitutional: Negative for: Fever, Chills, Weakness Cardiovascular: Negative for: Chest Pain Respiratory: Negative for: Shortness of Breath Musculoskeletal: Positive for: Leg Pain (swelling and pain the right leg) Neurological: Negative for: Weakness, Numbness, Dizziness Physical Exam - Physical Exam Appears: Other (comfortable) Skin: Normal Color, Warm, Dry Head: Atraumatic, Normacephalic Neck: Normal ROM, Supple Chest: Symmetrical, No Deformity Cardiovascular: Rhythm Regular, No Murmur Respiratory: No Accessory Muscle Use, No Rales, No Rhonchi, No Wheezing Gastrointestinal/Abdominal: Soft, No Tenderness Extremity: Swelling (right lower extremity; erythema,tenderness from the mid- heel to the foot), No Other (open wound) Pulses: Left Dorsalis Pedis: Normal, Right Dorsalis Pedis: Normal Neurological/Psych: Oriented x3, Normal Speech, Normal Cognition ED Course And Treatment O2 Sat by Pulse Oximetry: 95 (in RA) Progress Note: Venous doppler of the right lower extremity. Patient is negative for DVT. Patient advised to continue taking current antibiotics and return if symptoms worsen. Re-evaluation. Patient feels better. Discussed results and plan with patient who expresses understanding. All questions answered and there is agreement with the plan to discharge home with instructions. Patient stable for discharge. Return if symptoms persist or worsen. Disposition Counseled Patient/Family Regarding: Diagnosis, Need For Followup - Disposition Referrals: [facility] [Outside] Disposition: HOME/ ROUTINE Disposition Time: 10:00 Condition: STABLE Additional Instructions: FOLLOW UP WITH YOUR DOCTOR/CLINIC IN 1-2 DAYS CONTINUE ANTIBIOTICS UNTIL FINISHED RETURN TO ER IF YOUR SYMPTOMS WORSEN Instructions: Cellulitis (Skin Infection), Adult (DC) Forms: [employer] (Armenian) Print Language: POLISH - Clinical Impression Clinical Impression: Cellulitis of right leg - Scribe Statement The provider has reviewed the documentation as recorded by the Scribe (Marsha Santos) All medical record entries made by the Scribe were at my direction and personally dictated by me. I have reviewed the chart and agree that the record accurately reflects my personal performance of the history, physical exam, medical decision making, and the department course for this patient. I have also personally directed, reviewed, and agree with the discharge instructions and di sposition.
--- NOTE | 2018-09-30 12:51 | VASCLAB ---
Date of service: 09/30/2018 PROCEDURE: Right Lower Extremity Venous Duplex Exam. HISTORY: RIGHT CALF PAIN, R/O DVT PRIORS: None. TECHNIQUE: Right common femoral, femoral, popliteal and posterior tibial, peroneal and great saphenous veins were evaluated. Flow was assessed with color Doppler, compressibility, assessment of phasic flow and augmentation response. Report prepared by CAL Julien FINDINGS: RIGHT: 1. Common Femoral Vein: 1.1. Compressibility - Fully compressible: Thrombus - None: Flow - Phasic: Augmentation -Normal: Reflux - None. 2. Femoral Vein: 2.1. Compressibility - Fully compressible: Thrombus - None: Flow - Phasic: Augmentation -Normal: Reflux - None. 3. Popliteal Vein: 3.1. Compressibility - Fully compressible: Thrombus - None: Flow - Phasic: Augmentation -Normal: Reflux - None. 4. Posterior Tibial Vein: 4.1. Compressibility - Fully compressible: Thrombus - None: Flow - Phasic: Augmentation -Normal: Reflux - None. 5. Peroneal Vein: 5.1. Compressibility - Fully compressible: Thrombus - None: Flow - Phasic: Augmentation -Normal: Reflux - None. 6. Great Saphenous Vein: 6.1. Compressibility - Fully compressible: Thrombus -None: Flow - Phasic: Augmentation - Normal: Reflux - None. OTHER FINDINGS: IMPRESSION: No evidence of deep or superficial vein thrombosis of the right lower extremity with excellent venous flow. Normal valve function noted of the right side. Normal venous flow noted in the left common femoral vein.
== END 2018-09-30 10:05 | disposition home or self-care (01) ==
LOC: C.ER 08:37
DX: L03.115 Cellulitis of right lower limb (principal); E11.9 Type 2 diabetes mellitus without complications; E78.00 Pure hypercholesterolemia, unspecified; I10 Essential (primary) hypertension